=== PATIENT | male | born 1935 | race Caucasian/White ===

== ENCOUNTER 2023-03-01 09:00 | Outpatient (CLI) | payer MEDICARE | END 2023-03-01 09:01 | disposition home or self-care (01) | LOC: CSHRAD 09:00 | PROVIDERS: ATTEND Radiology Radiation Oncology | DX: Z01.818 Encounter for other preprocedural examination (principal); Z95.0 Presence of cardiac pacemaker | CPT/HCPCS: 71046 ==

== ENCOUNTER 2023-03-03 08:33 | Outpatient (CLI) | payer MEDICARE | END 2023-03-03 08:34 | disposition home or self-care (01) | LOC: CSHSPEC 08:33 | PROVIDERS: ATTEND Radiology Radiation Oncology | DX: C71.9 Malignant neoplasm of brain, unspecified (principal); Z53.9 Procedure and treatment not carried out, unspecified reason | CPT/HCPCS: 82565 ==

== ENCOUNTER 2023-04-27 09:29 | Outpatient (CLI) | payer MEDICARE | END 2023-04-27 09:30 | disposition home or self-care (01) | LOC: CSHSPEC 09:29 | PROVIDERS: ATTEND Radiology Radiation Oncology | DX: C71.9 Malignant neoplasm of brain, unspecified (principal); Z92.21 Personal history of antineoplastic chemotherapy; Z92.3 Personal history of irradiation; G93.6 Cerebral edema | CPT/HCPCS: 70553 ==

== ENCOUNTER 2023-12-20 12:57 | Outpatient (CLI) | payer MEDICARE | END 2023-12-20 12:58 | disposition home or self-care (01) | LOC: CSHSPEC 12:57 | PROVIDERS: ATTEND Orthopaedic Surgery | DX: M54.6 Pain in thoracic spine (principal); M47.26 Other spondylosis with radiculopathy, lumbar region; M43.16 Spondylolisthesis, lumbar region; M43.17 Spondylolisthesis, lumbosacral region; M48.54XD Collapsed vertebra, not elsewhere classified, thoracic region, subsequent encounter for fracture with routine healing; M48.56XD Collapsed vertebra, not elsewhere classified, lumbar region, subsequent encounter for fracture with routine healing; M48.061 Spinal stenosis, lumbar region without neurogenic claudication; M48.07 Spinal stenosis, lumbosacral region | CPT/HCPCS: 72148 ==